=== PATIENT | male | born 1960 | race Caucasian/White ===

== ENCOUNTER 2022-01-10 08:43 | Outpatient (CLI) | payer BC ==
[2022-01-10 14:46] LABS: ALBUMIN 4.5 g/dL (3.2-5.5); ALBUMIN/GLOBULIN RATIO 1.6 (1.0-2.2); ALKALINE PHOSPHATASE 54 IU/L (42-121); ALT ALANINE AMINOTRANSFERASE 28 IU/L (10-60); AST ASPARTATE AMINOTRANSFERASE 26 IU/L (10-42); BILIRUBIN,TOTAL 1.2 mg/dL (0.2-1.0); BUN - BLOOD UREA NITROGEN 18 mg/dL (6-20); CALCIUM 9.2 mg/dL (8.5-10.3); CARBON DIOXIDE - CO2 25 mmol/L (21-32); CHLORIDE 105 mmol/L (101-111); CHOL/HDL RATIO 4.5 (<5.0); CHOLESTEROL 273 mg/dL; GFR - MDRD 76 (>89); GLUCOSE 96 mg/dL (70-100); HDL CHOLESTEROL 61 mg/dL; LDL CHOLESTEROL,CALCULATED 176 mg/dL; LDL/HDL RATIO 2.9 (<3.6); POTASSIUM 3.8 mmol/L (3.5-5.0); SODIUM 140 mmol/L (135-145); TOTAL PROTEIN 7.3 g/dL (6.7-8.2); TRIGLYCERIDES 182 mg/dL; VLDL CHOLESTEROL 36 mg/dL
[2022-01-11 04:13] LABS: HCV AB <0.1 s/co ratio (0.0-0.9)
== END 2022-01-10 08:44 | disposition home or self-care (01) ==
LOC: LAB.S 08:43
PROVIDERS: ATTEND Physician Assistant
DX: R39.15 Urgency of urination (principal); Z13.220 Encounter for screening for lipoid disorders; Z13.1 Encounter for screening for diabetes mellitus; Z11.59 Encounter for screening for other viral diseases
CPT/HCPCS: 36415; 80053; 80061; 81599; 83721; 84153; 84154; 86803

== ENCOUNTER 2023-05-06 09:07 | Emergency (ER) | payer BC ==
[2023-05-06 09:16] VITALS: BP 161/96; O2SAT 97
--- NOTE | 2023-05-06 09:35 | ED Physician Documentation ---
History of Present Illness - Stated complaint Stated Complaint: WASP STING MOUTH - Chief complaint Chief Complaint: Allergic Rx - History obtained from History obtained from: Patient - History of Present Illness Timing: Today - Additonal information Additional information: 62-year-old male Guillaume mendoza was out riding his bike 1 week ago when he was stung in the back of the throat by a wasp. He had some swelling to the back of his throat he was able to spit the wasp out the swelling improved over a 2- day period of time and now the patient has awoken with swelling to the back of his throat again overnight. He has not had fever associated with this. He did take a COVID test 2 days after he had the sting because of the sore throat. This was negative. The patient has an allergy to Keflex. We have contacted the patient's and confirmed the patient has taken amoxicillin previously without incident. Review of Systems Constitutional: denies: Fever Eyes: denies: Decreased vision Ears: denies: Ear pain Nose: denies: Rhinorrhea / runny nose, Congestion Throat: reports: Sore throat, Other (swelling to the uvula) Cardiac: denies: Chest pain / pressure, Palpitations Respiratory: denies: Dyspnea, Cough GI: denies: Abdominal Pain, Nausea, Vomiting, Constipation, Diarrhea : denies: Dysuria, Frequency Skin: denies: Rash Musculoskeletal: denies: Neck pain, Back pain, Extremity pain Neurologic: denies: Generalized weakness, Focal weakness, Numbness PD PAST MEDICAL HISTORY - Present Medications Home Medications: Ambulatory Orders Medication Instructions Recorded Confirmed Amox/Clav 875/125 [Augmentin] 1 each PO Q12H #20 tablet 05/06/23 - Allergies Allergies/Adverse Reactions: Allergies Allergy/AdvReac Type Severity Reaction Status Date / Time cephalexin [From Keflex] AdvReac Rash Verified 05/06/23 09:10 PD ED PE NORMAL - Vitals Vital signs reviewed: Yes - General General: Alert and oriented X 3, No acute distress, Well developed/nourished, Other (tonal qulaity to the voice is subtle ) - HEENT HEENT: Atraumatic, PERRL, EOMI, Other (uvula is swollen symetrically with posterior exudate. ) - Neck Neck: Supple, no meningeal sign, No bony TTP - Cardiac Cardiac: RRR, No murmur - Respiratory Respiratory: No respiratory distress, Clear bilaterally - Derm Derm: Normal color, Warm and dry, No rash - Extremities Extremities: No deformity, No edema - Neuro Neuro: Alert and oriented X 3, music pastor 2-12 intact, No motor deficit, No sensory deficit Eye Opening: Spontaneous Motor: Obeys Commands Verbal: Oriented GCS Score: 15 - Psych Psych: Normal mood, Normal affect Results - Vitals Vitals: Vital Signs - 24 hr 05/06/ 09:10 Temperature 36.6 C Heart Rate 67 Respiratory 16 Rate Blood Pressure 161/96 H O2 Saturation 97 Oxygen O2 Source Room air PD Medical Decision Making - ED course Complexity details: considered differential, d/w patient ED course: 62-year-old male stung by a wasp 1 week ago had resolution of his swelling and now has worsening swelling with erythema and exudate. I suspect this is a bee sting cellulitis of the uvula. The patient is administered dexamethasone and Augmentin. I considered use of IM Rocephin and with the patient's allergy to Keflex I have elected to use oral Augmentin. We did confirm with the patient's that he is able to take amoxicillin. Departure - Departure Disposition: Home, Self Care Clinical Impression: Cellulitis Qualifiers: Site of cellulitis: mouth Qualified Code(s): K12.2 - Cellulitis and abscess of mouth Insect bites and stings Qualifiers: Encounter type: initial encounter Qualified Code(s): W57.XXXA - Bitten or stung by nonvenomous insect and other nonvenomous arthropods, initial encounter Condition: Stable Instructions: ED Infec Skin Cellulitis, ED Bite Sting Insect Gen Allergic React Follow-Up: Your, doctor [Other] Prescriptions: Amox/Clav 875/125 [Augmentin] 1 each PO Q12H #20 tablet Comments: Guillaume, today it looks like the bee sting that you had to your uvula has caused an infection to the uvula itself. There is swelling and exudate on the uvula. We have given you some dexamethasone which we expect to help shrink the uvula and this will likely improve your symptoms within several hours. I have E scribed additional antibiotic to the [facility] in [place]. Our expectations with treatment are continued improvement and if you have an increase in your symptoms this is a reason to come back and see us here in the emergency department.
[2023-05-06] MEDS: CHERRY SYRUP 10 ML UDC PO ONE (09:54)
[2023-05-06] MEDS: DEXAMETHASONE 10 MG/ML VIAL PO STA (09:54)
[2023-05-06] MEDS: AMOX/CLAV 875 MG/125 MG TABLET PO STA (09:54)
== END 2023-05-06 09:59 | disposition home or self-care (01) ==
LOC: ED 09:07
DX: T63.461A Toxic effect of venom of wasps, accidental (unintentional), initial encounter (principal); K12.2 Cellulitis and abscess of mouth
CPT/HCPCS: 99282; 99283

== ENCOUNTER 2024-03-06 09:21 | Day surgery (SDC) | payer BC ==
[2024-03-06] MEDS: LACTATED RINGERS 1,000 ML IV ONE ×2 (09:32→11:30)
--- NOTE | 2024-03-06 10:42 | ANESTHESIA ---
Pre-Anesthesia VS, & Labs - Diagnosis screening - Procedure Colonoscopy Vital Signs: Temp Pulse Resp BP Pulse Ox O2 Flow Rate 36.4 C L 57 L 17 140/90 H 100 03/06/24 09:32 03/06/24 09:32 03/06/24 09:32 03/06/24 09:32 03/06/24 09:32 Height: 5 ft 9 in Weight (kg): 88.2 kg Body Mass Index: 28.7 BMI Classification: Overweight - NPO Last Fluid Intake: 0500 Home Medications and Allergies Home Medications: Ambulatory Orders Loratadine [Allergy Relief] 10 mg PO DAILY 03/05/24 Tamsulosin HCl [Flomax] 0.4 mg PO DAILY 03/05/24 Loratadine [Allergy Relief] 10 mg PO DAILY 03/05/24 Tamsulosin HCl [Flomax] 0.4 mg PO DAILY 03/05/24 Allergies/Adverse Reactions: Allergies Allergy/AdvReac Type Severity Reaction Status Date / Time cephalexin [From Keflex] AdvReac Rash Verified 05/06/23 09:10 Anes History & Medical History - Anesthetic History Anesthesia Complications: reports: No previous complications - Medical History Cardiovascular: reports: High cholesterol, Other Pulmonary: reports: None Gastrointestinal: reports: None Urinary: reports: Benign prostate hypertrophy Musculoskeletal: reports: None Endocrine/Autoimmune: reports: None Skin: reports: None Smoking Status: Never smoker Psychosocial: reports: No issues indicated - Surgical History General: reports: Appendectomy, Colonoscopy Eyes Ears Nose Throat (EENT): reports: Tonsil/Adenoidectomy Orthopedic: reports: Other Results - EKG Results EKG Comparison: Reviewed EKG Exam General: Alert, Oriented x3 Dental: WNL Mouth Openin Fingerbreadth Neck Mobility: Normal Mallampati classification: II Thyromental Distance: 4-6 cm Plan Anesthesia Type: Total IV Consent for Procedure(s) Verified and Reviewed: Yes Code Status: Attempt Resuscitation ASA classification: 2-Mild systemic disease Is this case an emergency?: No
[2024-03-06] MEDS ORDERED: LIDOCAINE-PF 2% 10 ML AMP SUBQ ONE (10:45)
[2024-03-06] MEDS ORDERED: PROPOFOL 500 MG/50 ML 500 MG/50 ML VIAL ONE (10:45)
--- NOTE | 2024-03-06 10:45 | HISTORY & PHYSICAL EXAMINATION ---
Chief Complaint - Chief Complaint Chief Complaint: here for colonoscopy History of Present Illness - History Obtained From Records Reviewed: yes History obtained from: pt Exam Limitations: none - History of Present Illness HPI Comment/Other: here for colonoscopy for screening. normal colonoscopy 10 years ago. no gi symptoms and no fhx colon ca. History - Past Medical History Cardiovascular: reports: High cholesterol, Other Respiratory: reports: None Endocrine/Autoimmune: reports: None GI: reports: None : reports: Benign prostate hypertrophy HEENT: reports: None Psych: reports: None Musculoskeletal: reports: None Derm: reports: None MRSA Hx?: No - Past Surgical History General: reports: Appendectomy, Colonoscopy Ortho: reports: Other HEENT: reports: Tonsil/Adenoidectomy Meds/Allgy - Home Medications Home Medications: Ambulatory Orders Medication Instructions Recorded Confirmed Amox/Clav 875/125 [Augmentin] 1 each PO Q12H #20 tablet 05/06/23 Loratadine [Allergy Relief] 10 mg PO DAILY 03/05/24 03/05/24 Tamsulosin HCl [Flomax] 0.4 mg PO DAILY 03/05/24 03/05/24 - Allergies Allergies/Adverse Reactions: Allergies Allergy/AdvReac Type Severity Reaction Status Date / Time cephalexin [From Keflex] AdvReac Rash Verified 05/06/23 09:10 Review of Systems - Other Findings Other Findings: 10 pt ros as above otherwise unremarkable Exam - Vital Signs Vital Signs: Vital Signs x48h Temp Pulse Resp BP Pulse Ox 03/06/24 09:32 36.4 C L 57 L 17 140/90 H 100 - Physical Exam General Appearance: positive: No acute distress, Alert Eyes Bilateral: positive: PERRL, EOMI ENT: positive: No signs of dehydration Neck: positive: No JVD, Trachea midline Respiratory: positive: No respiratory distress Cardiovascular: positive: Regular rate & rhythm Abdomen: positive: No distention Neurologic/Psychiatric: positive: Oriented x3 Conclusion/Plan - Problem List (1) Colon cancer screening Conclusion/Plan: plan colonoscopy. parq held and consent obtained
[2024-03-06 11:59] VITALS: BP 117/63; O2SAT 99
--- NOTE | 2024-03-06 17:35 | ANESTHESIA POST OP EVALUATION ---
Anesthesia Post Eval - Post Anesthesia Eval Vitals: Last Vital Signs Temp 36.1 C L 03/06/24 11:30 Pulse 70 03/06/24 11:54 Resp 17 03/06/24 11:54 BP 117/63 03/06/24 11:54 Pulse Ox 99 03/06/24 11:54 O2 Flow Rate CV Function Including HR & BP: Stable Pain Control: Satisfactory Nausea & Vomiting: Negative Mental Status: Baseline Respiratory Status: Airway Patent Hydration Status: Satisfactory Anesthesia Complications: None
== END 2024-03-06 09:22 | disposition home or self-care (01) ==
LOC: SDS 09:21
PROVIDERS: ATTEND Surgery
PROC: 0DBK8ZZ Excision of Ascending Colon, Via Natural or Artificial Opening Endoscopic (ICD-10-PCS; principal; 2024-03-06 10:30)
DX: Z12.11 Encounter for screening for malignant neoplasm of colon (principal); K63.5 Polyp of colon; K57.30 Diverticulosis of large intestine without perforation or abscess without bleeding; N40.0 Benign prostatic hyperplasia without lower urinary tract symptoms
CPT/HCPCS: 45380; J7120

== ENCOUNTER 2024-10-31 21:46 | Observation (INO) ==
--- NOTE | 2024-10-31 22:03 | ED Physician Documentation ---
History of Present Illness Stated complaint Stated Complaint: Chief complaint Chief Complaint: General History obtained from History obtained from: Patient Additonal information Additional information: He had a TURP 2 weeks ago. Had his Mccormick out a few days ago and then developed clot retention. Had a Mccormick replaced and then also need another visit for irrigation for clot retention. At that time he declined catheter replacement with a larger 1. Developed more clot retention tonight. Meds/Allgy Home Medications Ambulatory Orders Medication Instructions Recorded Confirmed tamsulosin 0.4 mg capsule (Flomax) 0.4 mg PO DAILY 03/05/24 10/20/24 docusate sodium 100 mg capsule 100 mg PO BID PRN constipation #60 10/20/24 (Colace) caps hydrocodone 5 mg-acetaminophen 325 1 tab PO Q4H PRN Pain #10 tabs 10/20/24 mg tablet Allergies Allergies Allergy/AdvReac Type Severity Reaction Status Date / Time cephalexin (From Keflex) AdvReac Rash Verified 10/31/24 21:48 PFSH Active Problems All Active Problems (Updated 10/31/24 @ 23:28 by Margarito Wayne MD) Complication, blocked Mccormick catheter (Acute) Urinary retention (Acute) Surgical History Surgical History History of colonoscopy History of appendectomy History of Achilles tendon repair Social History Social History Smoking Status: Never smoker If you are a former smoker, when did you quit? (Date/Year): quit year 1993 Relationship: Do you feel safe in your home environment?: Yes Suffered physical, verbal, emotional, or financial abuse?: No ETOH Use: Beer Frequency: Occasional ETOH Use Details: 2 bottles per week Substance Use: denies use POLST Patient has POLST: No Exam Constitutional normal general appearance and no apparent distress Gastrointestinal abdomen normal to inspection, abdomen soft to palpation and nontender to palpation Results Vitals Vitals: Vital Signs - 24 hr 10/31/24 14:08 10/31/24 21:48 10/31/24 23:30 Temperature 36.8 C Temperature Source Tympanic Pulse Rate 78 Respiratory Rate 20 Blood Pressure 160/100 H O2 Saturation 96 96 O2 Source Room air Room air Pain Intensity 0 0 Oxygen O2 Source Room air PD Medical Decision Making ED course ED course: He has clot retention after TURP with a Mccormick in place. He this time he is amenable to a larger catheter and asked the nurse to place a 22 Wolof three-way coud. His Mccormick was replaced, I was able to flush saline in to the larger Mccorimck but it would not come back out at least not easily. On bedside ultrasound he does have clot load in the bladder. Case discussed by phone with Dr. Howard and after discussion with patient and family plan to bring him in knobs for cystoscopy in the morning. The patient and family are counseled as to the diagnosis and need for admission. This document was made in part using voice recognition software, while efforts are made to proofread this document, sound alike an grammatical errors may douglasu r. Discharge Plan Discharge Patient Disposition: ED Transfer to [facility] Condition: Stable Clinical Impression: Urinary retention Complication, blocked Mccormick catheter Qualifiers: Encounter type: initial encounter Qualified Code(s): T83.091A - Other mechanical complication of indwelling urethral catheter, initial encounter Prescriptions: No Action tamsulosin [Flomax] 0.4 MG capsule 0.4 mg PO DAILY hydrocodone-acetaminophen 5-325 mg tablet 1 tab PO Q4H PRN (Reason: Pain) Qty: 10 0RF docusate sodium [Colace] 100 mg capsule 100 mg PO BID PRN (Reason: constipation) Qty: 60 0RF Print Language: Gambian Stand Alone Forms: PCP List
[2024-10-31] MEDS: LIDOCAINE 2% URO-JET 5 ML SYRINGE UR STA (22:17)
--- NOTE | 2024-10-31 23:30 | PREOP HISTORY & PHYSICAL ---
Surgical History & Physical Chief Complaint/HPI Chief Complaint: catheter blockage, hematuria History of Present Illness: Guillaume is a 64-year-old male well-known to me for history of chronic urinary retention with a baseline bladder scan of 750 cc and urinary symptoms and nocturnal enuresis who failed medical management and I performed a TURP procedure on 2 weeks ago. He removed his Howard catheter a few days after that as planned but was unable to void after cathete removal, requiring catheter placement in the ER. He then represented last night with clot retention. His catheter was upsized but continues to have poor drainage. Unable to irrigate properly. He is draining somewhat. Despite significant manipulations and effort by the ER staff and Dr. Wayne, the catheter remains in poor position. He was admitted overnight for further monitoring. And plan for the OR today He is afebrile, hemodynamically stable, no leukocytosis Home Meds and Allergies Active Medications Generic Name Dose Route Start Last Admin Trade Name Freq PRN Reason Stop Dose Admin Acetaminophen 650 mg 10/31/24 23:31 Acetaminophen 325 Mg Tablet PO Q4HR PRN Pain 1 to 4, or Fever Hydrocodone Bitart/Acetaminophen 1 tab 10/31/24 23:31 Hydrocod/Acetam 5/325 Mg Tablet PO Q4HR PRN Pain 5 to 7 Docusate Sodium 100 mg 10/31/24 23:33 Docusate Sodium 100 Mg Capsule PO BID PRN constipation Ciprofloxacin 400 mg in 200 mls @ 200 mls/hr 11/01/24 07:00 Cipro 400 Mg/200 Ml IV 11/02/24 06:59 ONCE SHYANNE Melatonin 3 mg 10/31/24 23:31 Melatonin 3 Mg Tablet PO QPM PRN insomnia Morphine Sulfate 2 mg 10/31/24 23:31 Morphine 2 Mg/Ml Carpuject IVP Q2HR PRN Pain 8 to 10 Ondansetron HCl 4 mg 10/31/24 23:31 Ondansetron Odt 4 Mg Tablet TL Q6HR PRN Nausea / Vomiting Sodium Chloride 10 ml 10/31/24 23:31 Sodium Chloride Flush 0.9% 10 Ml Syringe IVP PRN PRN NEEDED PER PROVIDER ORDERS Sodium Chloride 10 ml 11/01/24 01:00 11/01/24 00:41 Sodium Chloride Flush 0.9% 10 Ml Syringe IVP 10 ml 0100,0900,1700 SHYANNE Administration tamsulosin 0.4 mg capsule (Flomax) 0.4 mg PO DAILY 03/05/24 docusate sodium 100 mg capsule (Colace) 100 mg PO BID PRN constipation #60 caps 10/20/24 hydrocodone 5 mg-acetaminophen 325 mg tablet 1 tab PO Q4H PRN Pain #10 tabs 10/20/24 Allergies Allergy/AdvReac Type Severity Reaction Status Date / Time cephalexin (From Keflex) AdvReac Rash Verified 10/31/24 21:48 Vital Signs O2 Saturation: 96 Patient Review Patient Review Pertinent Tests Reviewed [facility] Surgical History Surgical History History of colonoscopy History of appendectomy History of Achilles tendon repair Social History Social History Smoking Status: Former smoker If you are a former smoker, when did you quit? (Date/Year): 1993 Number of Years Smoked: 17 How many cigarettes a day do you smoke? (20 cigarettes=1 Pk): 20 Second hand tobacco smoke exposure: No Relationship: Level: Independent Do you feel safe in your home environment?: Yes Suffered physical, verbal, emotional, or financial abuse?: No ETOH Use: Beer Frequency: Occasional ETOH Use Details: 2 bottles per week Substance Use: denies use POLST Patient has POLST: No Exam Exam NAD RRR CTA b/l howard in place with red urine draining slowly Assessment & Plan Assessment & Plan Assessment & Plan: 64-year-old male with history of chronic urinary retention, TURP procedure 2 weeks ago with persistent retention afterwards requiring catheter replacement 4 days ago. Now presents last night with clot retention -to OR for cystoscopy, clot evacuation, fulguration of bleeding areas. We discussed the risks, benefits, alternatives. Specific risks of infection, bleeding, injury to adjacent structures, need for additional procedures, failure of therapy, catheter irritation, anesthesia risks were discussed Patient states understanding and consents the above plan If all goes well we will hopefully get him home today with catheter in place for voiding trial this week as already scheduled
[2024-10-31] MEDS ORDERED: ONDANSETRON ODT 4 MG TABLET TL PRN (23:31)
[2024-10-31] MEDS ORDERED: MELATONIN 3 MG TABLET PO PRN (23:31)
[2024-10-31] MEDS ORDERED: MORPHINE 2 MG/ML CARPUJECT IVP PRN (23:31)
[2024-10-31] MEDS ORDERED: SODIUM CHLORIDE FLUSH 0.9% 10 ML SYRINGE IVP PRN (23:31)
[2024-10-31] MEDS ORDERED: ACETAMINOPHEN 325 MG TABLET PO PRN (23:31)
[2024-10-31] MEDS ORDERED: HYDROcod/ACETAM 5/325 MG TABLET PO PRN (23:31)
[2024-10-31] MEDS ORDERED: DOCUSATE SODIUM 100 MG CAPSULE PO PRN (23:33)
[2024-10-31 23:48] LABS: BASOPHILS # (AUTO) 0.1 10^3/uL (0.0-0.1); BASOPHILS % (AUTO) 0.9 %; EOSINOPHILS # (AUTO) 0.2 10^3/uL (0.0-0.7); EOSINOPHILS % (AUTO) 1.6 %; HCT - HEMATOCRIT 42.3 % (42.0-52.0); LYMPHOCYTES % (AUTO) 22.3 %; MEAN CORPUSCULAR HEMOGLOBIN 28.9 pg (27.0-31.0); MEAN CORPUSCULAR HGB CONC 33.1 g/dL (32.0-36.0); MEAN CORPUSCULAR VOLUME 87.2 fL (80.0-94.0); MEAN PLATELET VOLUME 9.6 fL (7.4-11.4); MONOCYTES # (AUTO) 0.8 10^3/uL (0.0-1.0); NEUTROPHILS % (AUTO) 65.9 %; PLT - PLATELET COUNT 314 10^3/uL (130-450); RED BLOOD COUNT 4.85 10^6/uL (4.70-6.10); RED CELL DISTRIBUTION WIDTH 13.4 % (12.0-15.0); WHITE BLOOD COUNT 9.2 x10^3/uL (4.8-10.8)
[2024-10-31] MEDS: LORazepam 2 MG/ML VIAL IVP STA (23:49)
[2024-10-31 23:54] LABS: PT - PROTHROMBIN TIME 11.1 secs (9.9-12.6)
[2024-11-01] MEDS: SODIUM CHLORIDE FLUSH 0.9% 10 ML SYRINGE IVP SCH (00:41)
[2024-11-01] MEDS ORDERED: CIPROFLOXACIN 400 MG/200 ML 400 MG/200 ML BAG IV SCH (07:00)
--- NOTE | 2024-11-01 07:10 | Preop H&P Attestation ---
Preop H&P Attestation Preop History & Physical Preop H&P Date: 10/31/24 History & Physical Reviewed and patient examined today.: Changes noted -: howard slightly improved hematuria overnight
--- NOTE | 2024-11-01 07:19 | OPERATIVE REPORT ---
Operative Report General Admit Date: 11/01/24 Procedure Data: Operation Date: 11/01/24 07:30 Proposed Procedures p Transurethral Resection Prostate(Not Applicable) - Dayron Howard MD Anesthesia Type General Pre-Op Diagnosis: hematuria Post Op Diagnosis: hematuria Procedure Note Findings: adherent clot to prostate wall, resected to healthy tissue Complications: none Other Other Information/Narrative: After informed consent was obtained the patient was brought to the OR and laid in the supine position. The patient was anesthetized per anesthesia protocols, his Mccormick catheter was removed, and prepped and draped in usual sterile fashion in the dorsolithotomy position. A formal timeout was performed reconfirmed the patient and procedure. A 26 Ugandan resectoscope was advanced easily into urinary bladder. He was noted to have a small amount of clot in the bladder. He had an erythematous bladder wall consistent with catheter irritation. He had 3+ trabeculations. The prostate fossa itself showed evidence of recent TURP. His left lateral wall had been taken down quite well but had significant adherent clot to it. His right lateral wall did appear moderately still obstructing. Using loop electrocautery we resected this adherent clot to dissect down to healthy tissue on the left side. We then turned our attention to the right side and using loop electroc autery we resected the right lateral lobe to allow for a more symmetric opening. Prostate chips were sent for analysis. We then used a combination of Spot cautery and rollerball electrocautery for excellent hemostasis. There was a wide open channel. We did not resect distal to the verumontanum. A Uro-Jet was placed. We then placed a 22 Ugandan three-way Mccormick catheter into the bladder with 40 cc in the balloon and placed on gentle traction. This concluded the procedure the patient tolerated the procedure well. He was brought to the PACU without further incident. He will remain on continuous bladder irrigation for the moment with likely discharge later today with a catheter in place. He will follow up Sunday for void trial.
[2024-11-01] MEDS ORDERED: LIDOCAINE-PF 2% 10 ML AMP SUBQ ONE (07:22)
[2024-11-01] MEDS ORDERED: PROPOFOL 200 MG/20 ML VIAL IVP ONE (07:22)
[2024-11-01] MEDS ORDERED: fentaNYL 100 MCG/2 ML VIAL ONE ×2 (07:25→09:04)
[2024-11-01] MEDS ORDERED: MIDAZOLAM 2 MG/2 ML VIAL ONE (07:25)
[2024-11-01] MEDS ORDERED: HYDROmorphone 0.5 MG/0.5 ML SYRINGE IVP PRN (07:30)
[2024-11-01] MEDS ORDERED: ePHEDrine 50 MG/ML VIAL IVP PRN (07:30)
[2024-11-01] MEDS ORDERED: ONDANSETRON 4 MG/2 ML VIAL IVP PRN (07:30)
[2024-11-01] MEDS ORDERED: NALOXONE 0.4 MG/ML VIAL IVP PRN (07:30)
[2024-11-01] MEDS ORDERED: MORPHINE 2 MG/ML CARPUJECT IVP PRN (07:30)
[2024-11-01] MEDS ORDERED: ATROPINE ABBOJECT 1 MG/10 ML SYRINGE IVP PRN (07:30)
[2024-11-01] MEDS ORDERED: METOCLOPRAMIDE 10 MG/2 ML VIAL IVP PRN (07:30)
--- NOTE | 2024-11-01 07:30 | ANESTHESIA PROCEDURE NOTE ---
Pre-Anesthesia VS, & Labs Diagnosis Surgical Diagnosis:: hematuria Procedure Procedure: cysto, clot evacutation, fulgaration Vitals Vital Signs: Temp Pulse Resp BP Pulse Ox 36.7 C 67 20 131/84 H 96 11/01/24 04:37 11/01/24 04:37 11/01/24 04:37 11/01/24 04:37 11/01/24 04:37 NPO NPO: >8 hours Lab Results Current Lab Results: Laboratory Tests 10/31/24 23:44: WBC 9.2, RBC 4.85, Hgb 14.0, Hct 42.3, MCV 87.2, MCH 28.9, MCHC 33.1, RDW 13.4, Plt Count 314, MPV 9.6, Neut # (Auto) 6.0, Lymph # (Auto) 2.0, [place] # (Auto) 0.8, Eos # (Auto) 0.2, Baso # (Auto) 0.1, Absolute Nucleated RBC 0.00, Nucleated RBC % 0.0, PT 11.1, INR 1.0, B-Natriuretic Peptide 7 10/31/24 23:44 Meds/Allgy Home Medications Ambulatory Orders Medication Instructions Recorded Confirmed tamsulosin 0.4 mg capsule (Flomax) 0.4 mg PO DAILY 03/05/24 10/20/24 docusate sodium 100 mg capsule 100 mg PO BID PRN constipation #60 10/20/24 (Colace) caps hydrocodone 5 mg-acetaminophen 325 1 tab PO Q4H PRN Pain #10 tabs 10/20/24 mg tablet oxycodone 5 mg tablet 5 mg PO Q4H PRN Pain #10 tabs 11/01/24 Allergies Allergies Allergy/AdvReac Type Severity Reaction Status Date / Time cephalexin (From Keflex) AdvReac Rash Verified 10/31/24 21:48 PFSH Active Problems All Active Problems Complication, blocked Mccormick catheter (Acute) Urinary retention (Acute) Surgical History Surgical History History of colonoscopy History of appendectomy History of Achilles tendon repair Social History Social History Smoking Status: Former smoker If you are a former smoker, when did you quit? (Date/Year): 1993 Number of Years Smoked: 17 How many cigarettes a day do you smoke? (20 cigarettes=1 Pk): 20 Second hand tobacco smoke exposure: No Relationship: Level: Independent Do you feel safe in your home environment?: Yes Suffered physical, verbal, emotional, or financial abuse?: No ETOH Use: Beer Frequency: Occasional ETOH Use Details: 2 bottles per week Substance Use: denies use POLST Patient has POLST: No Anesthesia Exam (Expanded) Exam General: Alert and Oriented x3 Dental: WNL Mouth Openin Fingerbreadth Neck Mobility: Normal Mallampati classification: II Thyromental Distance: greater than 6 cm Respiratory: Lungs clear Cardiovascular: Regular rate Plan Plan Anesthesia Type: General Consent for Procedure(s) Verified and Reviewed: Yes Code Status: Attempt Resuscitation ASA Classification ASA classification: 2-Mild systemic disease Is this case an emergency?: No
[2024-11-01] MEDS ORDERED: LIDOCAINE 2% URO-JET 5 ML SYRINGE UR ONE (08:09)
[2024-11-01] MEDS: LACTATED RINGERS 1,000 ML IV SCH (08:49)
--- NOTE | 2024-11-01 09:04 | ANESTHESIA POST OP EVALUATION ---
Anesthesia Post Eval Post Anesthesia Eval Vitals: Last Vital Signs Temp 36.7 C 11/01/24 04:37 Pulse 67 11/01/24 04:37 Resp 20 11/01/24 04:37 BP 131/84 H 11/01/24 04:37 Pulse Ox 96 11/01/24 04:37 CV Function Including HR & BP: Stable Pain Control: Satisfactory Nausea & Vomiting: Negative Mental Status: Baseline Respiratory Status: Airway Patent Hydration Status: Satisfactory Anesthesia Complications: None
[2024-11-01] MEDS: fentaNYL 100 MCG/2 ML VIAL IVP PRN (09:06)
--- NOTE | 2024-11-01 10:01 | PHARMACY PROGRESS NOTE ---
Best Possible Medication History Admit Date and Time: 11/01/24 [id number] Home Medications Medication Instructions Recorded Confirmed Type tamsulosin 0.4 mg capsule (Flomax) 0.4 mg PO DAILY 03/05/24 11/01/24 History docusate sodium 100 mg capsule 100 mg PO BID PRN constipation #60 10/20/24 11/01/24 Rx (Colace) caps oxycodone 5 mg tablet 5 mg PO Q4H PRN Pain #10 tabs 11/01/24 Rx Processed by: Pharmacy Medications reviewed in ED?: No Medication History completed: Yes Patient Interview: Completed Secondary Source(s): Other family member and Insurance records BPM Statement: Pt interview with [employer] Rx records and spouse present. As the person ultimately responsible for medication therapy, providers are able to order a medication from an existing home medication list in [facility] via the "Reconcile Routine" prior to Confirmation of that medication by residential support worker. Such practice is discouraged except when the physician, in their clinical judgment, deems that a medical need exists for a medication without regard to previous use.
[2024-11-01 10:33] VITALS: TEMP 98.1; O2SAT 96
[2024-11-01 11:46] VITALS: BP 129/77
== END 2024-11-01 11:49 | disposition home or self-care (01) ==
LOC: MS3 21:46 → ED 21:46 → MS3 11-01 00:39
PROVIDERS: ADMIT Urology; ATTEND Urology
DX: N32.89 Other specified disorders of bladder; N13.8 Other obstructive and reflux uropathy; N40.1 Benign prostatic hyperplasia with lower urinary tract symptoms; R31.9 Hematuria, unspecified; T83.098A Other mechanical complication of other urinary catheter, initial encounter; R33.9 Retention of urine, unspecified; Z87.891 Personal history of nicotine dependence